=== PATIENT | female | born 1930 | race Asian ===

== ENCOUNTER → 2018-01-13 | Outpatient (CLI) | payer MEDICARE, BC ==
[~2018-01-13] MED LIST: ALBU8.5H8 INH; AMLO10TA2 PO; ASPI-496 PO; CHOL400C PO; FOLI1TAB5 PO; LOSA1TAB19 PO; NPH,100V5 SC; PRAV80TA2 PO; SUCR1TAB33 PO
== END | disposition home or self-care (01) ==
LOC: CFH 11:57
PROVIDERS: ATTEND Family Medicine
DX: J18.8 Other pneumonia, unspecified organism (principal)
CPT/HCPCS: 71046